=== PATIENT | male | born 1970 | race American Indian/Alaskan Native ===

== ENCOUNTER 2020-08-24 10:09 | Emergency (ER) | payer BC ==
[2020-08-24] MEDS ORDERED: ASPIRIN 325 MG TAB PO ONE (10:27)
--- NOTE | 2020-08-24 10:28 | Event Note ---
ED Screening Note Date of service: 08/24/20 Time: 10:27 ED Screening Note: Patient presents to the ER today with complaints of chest pain off and on for the past 3 to 4 months. Patient blood pressure noted to be elevated at triage. He admits to known history of hypertension but has been noncompliant with his medications. This initial assessment/diagnostic orders/clinical plan/treatment(s) is/are subject to change based on patients health status, clinical progression and re- assessment by fellow clinical providers in the ED. Further treatment and workup at subsequent clinical providers discretion. Patient/guardian urged not to elope from the ED as their condition may be serious if not clinically assessed and managed. Initial orders include: Chest pain orders
--- NOTE | 2020-08-24 10:51 | XRay Report ---
CHEST 2 VIEWS INDICATION / CLINICAL INFORMATION: Chest Pain. COMPARISON: None available. FINDINGS: SUPPORT DEVICES: None. HEART / MEDIASTINUM: No significant abnormality. LUNGS / PLEURA: There is a small left pleural effusion with mild bibasilar atelectasis. The lungs are otherwise clear. No pneumothorax. ADDITIONAL FINDINGS: No significant additional findings. IMPRESSION: Small left pleural effusion with mild bibasilar atelectasis. Signer Name: Saad Mcneill MD Signed: 08/24/2020 10:47 AM Workstation Name: [id number]
[2020-08-24 11:10] LABS: Basophils % (Auto) 0.4 % (0.0-1.8); Eosinophils # (Auto) 0.1 K/mm3 (0.0-0.4); Eosinophils % (Auto) 0.8 % (0.0-4.3); Hemoglobin 15.5 gm/dl (11.8-15.2); Lymphocytes # (Auto) 1.7 K/mm3 (1.2-5.4); Mean Corpuscular HGB Conc 33 % (32-34); Mean Corpuscular Volume 78 fl (84-94); Monocytes # (Auto) 0.4 K/mm3 (0.0-0.8); Monocytes % (Auto) 3.5 % (0.0-7.3); Platelet Count 265 K/mm3 (140-440); Red Blood Count 6.04 M/mm3 (3.65-5.03); Red Cell Distribution Width 16.7 % (13.2-15.2)
[2020-08-24 11:19] LABS: INR 1.08 (0.87-1.13)
[2020-08-24 11:20] LABS: Partial Thromboplastin Time 25.2 Sec. (24.2-36.6)
--- NOTE | 2020-08-24 13:32 | Emergency Department Report ---
ED Chest Pain HPI - General Chief Complaint: Chest Pain Stated Complaint: CHEST PAINS PUI?: No Time Seen by Provider: 08/24/20 13:16 Source: patient Mode of arrival: Ambulatory Limitations: No Limitations - History of Present Illness Initial Comments: CC: heart racing, shortness of breath, food getting stuck HPI: This a 49 yo male with hx of HTN who presents with intermittent chest discomfort for 3-4 months. He feels that the discomfort is associated with food. Worse with laying flat. Worse at night. Mr. Freeman has also noticed shortness of breath when laying flat. Heart starts to race when sits up. He had persistent chest discomfort after eating last night. Resolved this morning. No leg swelling. No shortness of breath with exertion. MD Complaint: chest pain -: Gradual, month(s) (3-4 months) Onset: during rest, after eating Pain Location: epigastric Severity: mild Quality: other (feels like food getting stuck) Consistency: intermittent, now resolved Improves With: other (sitting up) Worsens With: eating, other (laying flat) re: dyspnea Treatments Prior to Arrival: none - Related Data Previous Rx's Medication Instructions Recorded Last Taken Type Omeprazole 40 mg PO DAILY #30 capsule. 08/24/20 Unknown Rx Valsartan 80 mg PO DAILY #90 tablet 08/24/20 Unknown Rx amLODIPine 5 mg PO DAILY #90 tab 08/24/20 Unknown Rx Allergies Allergy/AdvReac Type Severity Reaction Status Date / Time No Known Allergies Allergy Unverified 08/24/20 10:19 Heart Score - HEART Score History: Slightly suspicious EKG: Non-specific Age: 45-65 Risk factors: 1-2 risk factors Troponin: < normal limit HEART Score: 3 - EKG Read Time Time EKG Completed: 10:23 EKG Read Time: 10:28 ED Review of Systems ROS: Stated complaint: CHEST PAINS Other details as noted in HPI Comment: All other systems reviewed and negative Constitutional: denies: fever, malaise Respiratory: shortness of breath. denies: cough Cardiovascular: chest pain, palpitations Gastrointestinal: denies: abdominal pain, nausea, vomiting Neurological: denies: headache, weakness ED Past Medical Hx - Past Medical History Previous Medical History?: Yes Hx Hypertension: Yes Additional medical history: anemia - Surgical History Past Surgical History?: No - Medications Home Medications: Home Medications Medication Instructions Recorded Confirmed Last Taken Type Omeprazole 40 mg PO DAILY #30 capsule. 08/24/20 Unknown Rx Valsartan 80 mg PO DAILY #90 tablet 08/24/20 Unknown Rx amLODIPine 5 mg PO DAILY #90 tab 08/24/20 Unknown Rx ED Physical Exam - General Limitations: No Limitations General appearance: alert, in no apparent distress - Head Head exam: Present: atraumatic, normocephalic - Eye Eye exam: Present: normal appearance - ENT ENT exam: Present: mucous membranes moist - Neck Neck exam: Present: normal inspection, full ROM - Respiratory Respiratory exam: Present: normal lung sounds bilaterally. Absent: respiratory distress, wheezes, rales, rhonchi - Cardiovascular Cardiovascular Exam: Present: regular rate, normal rhythm, normal heart sounds. Absent: systolic murmur, diastolic murmur, rubs, gallop - GI/Abdominal GI/Abdominal exam: Present: soft, normal bowel sounds. Absent: distended, tenderness, guarding, rebound - Rectal Rectal exam: Present: deferred - Extremities Exam Extremities exam: Present: normal inspection - Neurological Exam Neurological exam: Present: alert, oriented X3 - Psychiatric Psychiatric exam: Present: normal affect, normal mood - Skin Skin exam: Present: warm, dry, intact, normal color. Absent: rash ED Course Vital Signs 08/24/20 10:20 Temperature 98.1 F Pulse Rate 103 H Respiratory 20 Rate Blood Pressure 187/150 O2 Sat by Pulse 98 Oximetry ED Medical Decision Making - Lab Data Result diagrams: 08/24/20 10:52 08/24/20 10:52 - Radiology Data Radiology results: report reviewed Patient Name: MARCY FREEMAN Gender: Male Date of : 1970 Referring Provider: ISABELLE BLAKELY Organization: [facility] Accession Number: [id number] Requested Date: August 24, 2020 10:27 Report Status: Final Requested Procedure: 1 Procedure Description: XR chest routine 2V Modality: XR Findings Reporting MD: Saad Mcneill Dictation Time: August 24, 2020 09:47 Muck Hauler: Not available Occupational Health Physician Date: CHEST 2 VIEWS INDICATION / CLINICAL INFORMATION: Chest Pain. COMPARISON: None available. FINDINGS: SUPPORT DEVICES: None. HEART / MEDIASTINUM: No significant abnormality. LUNGS / PLEURA: There is a small left pleural effusion with mild bibasilar atelectasis. The lungs are otherwise clear. No pneumothorax. ADDITIONAL FINDINGS: No significant additional findings. IMPRESSION: Small left pleural effusion with mild bibasilar atelectasis. - Medical Decision Making 1. GERD: omeprazole for 30 days 2. PND, dyspnea with small pleural effusion suspect heart failure, upon my personal review of CXR patient has significant cardiomegaly, patient understands need to see physician for ultimate treatment and diagnosis. Referral request faxed to [facility] for cardiology follow up. 3. Hypertensive Urgency due to noncompliance. Rx: valsartan, amlodipine 90 day prescription Given referral to PCP 4. Chronic kidney disease likely due to untreated hypertension. Patient referred to outpatient medicine physician. Critical care attestation.: If time is entered above; I have spent that time in minutes in the direct care of this critically ill patient, excluding procedure time. ED Disposition Clinical Impression: GERD (gastroesophageal reflux disease), Hypertensive urgency, Pleural effusion, Chronic kidney disease Disposition: TO HOME OR SELFCARE Is pt being admited?: No Does the pt Need Aspirin: No Condition: Stable Instructions: Chronic Kidney Disease, Adult, [id number], Gastroesophageal Reflux Disease, Adult, Uthv-id-Lycm Prescriptions: amLODIPine 5 mg PO DAILY #90 tab Omeprazole 40 mg PO DAILY #30 capsule.dr Salomonrtan 80 mg PO DAILY #90 tablet Referrals: ROBB ESPINAL MD [Staff Physician] - 3-5 Days MARSHA CURTIS MD [Staff Physician] - 3-5 Days
[2020-08-24 13:59] LABS: Albumin 3.9 g/dL (3.9-5); Calcium 9.5 mg/dL (8.4-10.2)
[2020-08-24 14:37] VITALS: BP 171/114
--- NOTE | 2020-08-28 17:30 | Electrocardiograph Report ---
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
== END 2020-08-24 14:39 | disposition home or self-care (01) ==
LOC: ED 10:09
DX: I12.9 Hypertensive chronic kidney disease with stage 1 through stage 4 chronic kidney disease, or unspecified chronic kidney disease (principal); N18.9 Chronic kidney disease, unspecified; K21.9 Gastro-esophageal reflux disease without esophagitis; J90 Pleural effusion, not elsewhere classified; I16.0 Hypertensive urgency; Z79.899 Other long term (current) drug therapy
CPT/HCPCS: 36415; 71046; 80053; 83690; 84484; 85025; 85610; 85730; 93005

== ENCOUNTER 2021-10-16 13:37 | Emergency (ER) | payer BC ==
--- NOTE | 2021-10-16 15:33 | XRay Report ---
ABDOMEN 2 VIEW INDICATION / CLINICAL INFORMATION: consitpation. COMPARISON: None available. FINDINGS: TUBES / LINES: None. BOWEL GAS PATTERN: No significant abnormality. FREE AIR / EXTRALUMINAL GAS: None seen. ADDITIONAL FINDINGS: No significant additional findings. IMPRESSION: 1. No acute findings. Signer Name: Rudolph Willard MD Signed: 10/16/2021 3:29 PM Workstation Name: [id number]
[2021-10-16 16:03] LABS: Albumin 4.6 g/dL (3.9-5); Calcium 10.1 mg/dL (8.4-10.2)
[2021-10-16 16:12] LABS: Basophils # (Auto) 0.1 K/mm3 (0.0-0.1); Basophils % (Auto) 1.6 % (0.0-1.8); Eosinophils # (Auto) 0.1 K/mm3 (0.0-0.4); Eosinophils % (Auto) 1.1 % (0.0-4.3); Hematocrit 46.6 % (35.5-45.6); Hemoglobin 15.2 gm/dl (11.8-15.2); Lymphocytes # (Auto) 1.4 K/mm3 (1.2-5.4); Lymphocytes % (Auto) 17.2 % (13.4-35.0); Mean Corpuscular HGB Conc 33 % (32-34); Mean Corpuscular Volume 75 fl (84-94); Mean Platelet Volume 7.3 fl (6-12); Monocytes # (Auto) 0.4 K/mm3 (0.0-0.8); Monocytes % (Auto) 5.3 % (0.0-7.3); Platelet Count 263 K/mm3 (140-440); Red Blood Count 6.19 M/mm3 (3.65-5.03); Red Cell Distribution Width 17.4 % (13.2-15.2)
[2021-10-16] MEDS ORDERED: KETOROLAC 30 MG/1 ML INJ IV ONE (20:59)
[2021-10-16] MEDS ORDERED: ONDANSETRON 4 MG/2 ML INJ IV ONE (20:59)
[2021-10-16] MEDS ORDERED: SODIUM CHLORIDE 0.9% 1000 ML 1,000 ML IV ONE (20:59)
--- NOTE | 2021-10-16 21:48 | Emergency Department Report ---
ED Abdominal Pain HPI - General Chief Complaint: Abdominal Pain Stated Complaint: ABD/BACK PAIN Time Seen by Provider: 10/16/21 20:57 Source: patient Mode of arrival: Ambulatory Limitations: No Limitations - History of Present Illness Initial Comments: Is a 50-year-old male who presents for epigastric pain radiating to right flank x1 week. Patient states nausea no vomiting. No fever chills symptoms rated at 7/10. Exacerbated by movement. Patient denies dysuria however does endorse frequency and urgency there is no hematuria. Has history of hypertension and GERD. Symptoms are relieved by nothing. Symptoms have persisted for the past 2 weeks. MD Complaint: abdominal pain, flank pain Severity scale (0 -10): 3 - Related Data Previous Rx's Medication Instructions Recorded Last Taken Type Omeprazole 40 mg PO DAILY #30 capsule. 08/24/20 Unknown Rx Valsartan 80 mg PO DAILY #90 tablet 08/24/20 Unknown Rx amLODIPine 5 mg PO DAILY #90 tab 08/24/20 Unknown Rx polyethylene glycoL 3350 [Miralax 17 gm PO BID PRN #14 packet 10/16/21 Unknown Rx 3350] Allergies Allergy/AdvReac Type Severity Reaction Status Date / Time No Known Allergies Allergy Unverified 08/24/20 10:19 ED Review of Systems ROS: Stated complaint: ABD/BACK PAIN Other details as noted in HPI Constitutional: denies: chills, fever Eyes: denies: eye pain, eye discharge, vision change ENT: denies: ear pain, throat pain Respiratory: denies: cough, shortness of breath, wheezing Cardiovascular: denies: chest pain, palpitations Endocrine: no symptoms reported Gastrointestinal: abdominal pain, nausea. denies: vomiting, diarrhea, constipation, melena Genitourinary: denies: urgency, dysuria, frequency, hematuria, discharge Musculoskeletal: back pain Skin: denies: rash, lesions Neurological: denies: headache, weakness, paresthesias, vertigo Psychiatric: denies: anxiety, depression Hematological/Lymphatic: denies: easy bleeding, easy bruising ED Past Medical Hx - Past Medical History Previous Medical History?: Yes Hx Hypertension: Yes Hx GERD: Yes Additional medical history: anemia - Surgical History Past Surgical History?: No - Social History Smoking Status: Unknown if ever smoked - Medications Home Medications: Home Medications Medication Instructions Recorded Confirmed Last Taken Type Omeprazole 40 mg PO DAILY #30 capsule. 08/24/20 Unknown Rx Valsartan 80 mg PO DAILY #90 tablet 08/24/20 Unknown Rx amLODIPine 5 mg PO DAILY #90 tab 08/24/20 Unknown Rx polyethylene glycoL 3350 [Miralax 17 gm PO BID PRN #14 packet 10/16/21 Unknown Rx 3350] ED Physical Exam - General Limitations: No Limitations General appearance: alert, in no apparent distress - Head Head exam: Present: normocephalic, normal inspection - Eye Eye exam: Present: EOMI Pupils: Present: normal accommodation - ENT ENT exam: Present: mucous membranes moist - Neck Neck exam: Present: normal inspection, full ROM. Absent: tenderness, lymphadenopathy - Respiratory Respiratory exam: Present: normal lung sounds bilaterally. Absent: respiratory distress, wheezes, stridor, chest wall tenderness - Cardiovascular Cardiovascular Exam: Present: regular rate, normal rhythm, normal heart sounds. Absent: systolic murmur, diastolic murmur, rubs, gallop - GI/Abdominal GI/Abdominal exam: Present: soft, tenderness, normal bowel sounds. Absent: distended, guarding (Epigastric), rebound, rigid, bruit, hernia - Rectal Rectal exam: Present: deferred - Extremities Exam Extremities exam: Present: normal inspection, full ROM, normal capillary refill. Absent: pedal edema - Back Exam Back exam: Present: normal inspection, full ROM, CVA tenderness (R). Absent: CVA tenderness (L) - Neurological Exam Neurological exam: Present: alert, oriented X3, CN II-XII intact - Psychiatric Psychiatric exam: Present: normal affect, normal mood - Skin Skin exam: Present: warm, dry, intact, normal color. Absent: rash ED Course Vital Signs 10/16/21 10/16/21 14:47 21:42 Pulse Rate 99 H Respiratory 18 16 Rate Blood Pressure 153/114 [Left] O2 Sat by Pulse 99 Oximetry ED Medical Decision Making - Lab Data Result diagrams: 10/16/21 15:26 10/16/21 15:26 Labs 10/16/21 10/16/21 15:26 15:26 WBC 8.2 RBC 6.19 H Hgb 15.2 Hct 46.6 H MCV 75 L MCH 25 L MCHC 33 RDW 17.4 H Plt Count 263 Lymph % (Auto) 17.2 Kings % (Auto) 5.3 Eos % (Auto) 1.1 Baso % (Auto) 1.6 Lymph # (Auto) 1.4 Kings # (Auto) 0.4 Eos # (Auto) 0.1 Baso # (Auto) 0.1 Seg Neutrophils % 74.8 H Seg Neutrophils # 6.1 Sodium 141 Potassium 3.9 Chloride 103.7 Carbon Dioxide 24 Anion Gap 17 BUN 21 H Creatinine 1.6 H Estimated GFR 55 BUN/Creatinine Ratio 13 Glucose 97 Calcium 10.1 Total Bilirubin 0.90 AST 20 ALT 18 Alkaline Phosphatase 74 Total Protein 7.7 Albumin 4.6 Albumin/Globulin Ratio 1.5 Labs 10/16/21 10/16/21 15:26 15:26 WBC 8.2 RBC 6.19 H Hgb 15.2 Hct 46.6 H MCV 75 L MCH 25 L MCHC 33 RDW 17.4 H Plt Count 263 Lymph % (Auto) 17.2 Kings % (Auto) 5.3 Eos % (Auto) 1.1 Baso % (Auto) 1.6 Lymph # (Auto) 1.4 Kings # (Auto) 0.4 Eos # (Auto) 0.1 Baso # (Auto) 0.1 Seg Neutrophils % 74.8 H Seg Neutrophils # 6.1 Sodium 141 Potassium 3.9 Chloride 103.7 Carbon Dioxide 24 Anion Gap 17 BUN 21 H Creatinine 1.6 H Estimated GFR 55 BUN/Creatinine Ratio 13 Glucose 97 Calcium 10.1 Total Bilirubin 0.90 AST 20 ALT 18 Alkaline Phosphatase 74 Total Protein 7.7 Albumin 4.6 Albumin/Globulin Ratio 1.5 - Radiology Data Radiology results: report reviewed, image reviewed CT ABDOMEN AND PELVIS WITHOUT CONTRAST INDICATION / CLINICAL INFORMATION: Flank pain, possible renal stone(s). TECHNIQUE: Axial CT images were obtained through the abdomen and pelvis without IV contrast. All CT scans at this location are performed using CT dose reduction for ALARA by means of automated exposure control. COMPARISON: None available. FINDINGS: LOWER CHEST: No significant abnormality. LIVER: No significant abnormality. GALLBLADDER: No significant abnormality. BILE DUCTS: No significant abnormality. PANCREAS: No significant abnormality. SPLEEN: No significant abnormality. ADRENALS: No significant abnormality. RIGHT KIDNEY/URETER: No significant abnormality. LEFT KIDNEY/URETER: A probable lower pole left renal cyst measures up to 6.8 cm without suspicious features by noncontrast imaging. No other significant abnormality. STOMACH/SMALL BOWEL: No significant abnormality. COLON: No significant abnormality. APPENDIX: No significant abnormality. PERITONEUM: No free fluid. No free air. No fluid collection. LYMPH NODES: No significant adenopathy. VASCULATURE: No significant abnormality. URINARY BLADDER: No significant abnormality. REPRODUCTIVE ORGANS: The prostate gland is mildly enlarged. No other signif icant abnormality. ADDITIONAL FINDINGS: None. BONES: Mild degenerative changes are seen along the SI joints. No other significant abnormality. IMPRESSION: 1. No renal/ureteral stones or other acute findings to spine the patient's flank pain. 2. Additional findings as above. Signer Name: Saad Mcneill MD Signed: 10/16/2021 10:19 PM Workstation Name: [id number] Transcribed By: [place] Dictated By: Saad Mcneill MD Electronically Authenticated By: Saad Mcneill MD Signed Date/Time: 10/16/212218 DD/ 15 TD/TT: ABDOMEN 2 VIEW INDICATION / CLINICAL INFORMATION: consitpation. COMPARISON: None available. FINDINGS: TUBES / LINES: None. BOWEL GAS PATTERN: No significant abnormality. FREE AIR / EXTRALUMINAL GAS: None seen. ADDITIONAL FINDINGS: No significant additional findings. IMPRESSION: 1. No acute findings. Signer Name: Rudolph Willard MD Signed: 10/16/2021 3:29 PM Workstation Name: [id number] Transcribed By: TL Dictated By: Rudolph Willard MD Electronically Authenticated By: Rudolph Willard MD Signed Date/Time: 10/16/211528 DD/ 151 TD/TT: - Medical Decision Making CT scan left renal pole cyst 6.8 cm no other abnormal findings, KUB normal gas pattern, labs noted as above. Patient advised symptoms improved medications given in ED plan DC to home with prescriptions. Follow-up with primary care doctor in 2 to 3 days. Return to emergency department should symptoms symptoms worsen. Patient verbalized agreement understanding with discharge plan patient DC'd home in stable condition at this time., Critical care attestation.: If time is entered above; I have spent that time in minutes in the direct care of this critically ill patient, excluding procedure time. ED Disposition Clinical Impression: Abdominal pain Qualifiers: Abdominal location: right upper quadrant Qualified Code(s): R10.11 - Right upper quadrant pain Disposition: HOME / SELF CARE / HOMELESS Is pt being admited?: No Does the pt Need Aspirin: No Condition: Stable Instructions: Abdominal Pain, Adult, [id number] Additional Instructions: Take medications as prescribed. Follow-up with your doctor in 2 to 3 days. Return to emergency department should symptoms worsen. Prescriptions: polyethylene glycoL 3350 [Miralax 3350] 17 gm PO BID PRN #14 packet PRN Reason: Constipation Referrals: OSMANI HERNANDEZ MD [Staff Physician] - 3-5 Days Forms: Work/School Release Form(ED) Time of Disposition: 23:30
--- NOTE | 2021-10-16 22:24 | Cat Scan Report ---
CT ABDOMEN AND PELVIS WITHOUT CONTRAST INDICATION / CLINICAL INFORMATION: Flank pain, possible renal stone(s). TECHNIQUE: Axial CT images were obtained through the abdomen and pelvis without IV contrast. All CT scans at [facility] location are performed using CT dose reduction for ALARA by means of automated exposure control. COMPARISON: None available. FINDINGS: LOWER CHEST: No significant abnormality. LIVER: No significant abnormality. GALLBLADDER: No significant abnormality. BILE DUCTS: No significant abnormality. PANCREAS: No significant abnormality. SPLEEN: No significant abnormality. ADRENALS: No significant abnormality. RIGHT KIDNEY/URETER: No significant abnormality. LEFT KIDNEY/URETER: A probable lower pole left renal cyst measures up to 6.8 cm without suspicious fe atures by noncontrast imaging. No other significant abnormality. STOMACH/SMALL BOWEL: No significant abnormality. COLON: No significant abnormality. APPENDIX: No significant abnormality. PERITONEUM: No free fluid. No free air. No fluid collection. LYMPH NODES: No significant adenopathy. VASCULATURE: No significant abnormality. URINARY BLADDER: No significant abnormality. REPRODUCTIVE ORGANS: The prostate gland is mildly enlarged. No other significant abnormality. ADDITIONAL FINDINGS: None. BONES: Mild degenerative changes are seen along the SI joints. No other significant abnormality. IMPRESSION: 1. No renal/ureteral stones or other acute findings to spine the patient's flank pain. 2. Additional findings as above. Signer Name: Saad Mcneill MD Signed: 10/16/2021 10:19 PM Workstation Name: [id number]
[2021-10-16 22:59] LABS: Hyaline Casts,Urine 1 /LPF; Mucus,Urine FEW /HPF; RBC,Urine < 1.0 /HPF (0.0-6.0)
[2021-10-16 23:00] LABS: Bilirubin,Urine Negative (Negative); Color,Urine Yellow (Yellow)
[2021-10-16 23:01] LABS: Blood,Urine Trace (Negative); Protein,Urine >2000 mg dL mg/dL (Negative)
[2021-10-17 01:18] VITALS: BP 140/88
== END 2021-10-17 01:18 | disposition home or self-care (01) ==
LOC: ED 13:37
DX: R10.13 Epigastric pain (principal); R10.11 Right upper quadrant pain; I10 Essential (primary) hypertension; K21.9 Gastro-esophageal reflux disease without esophagitis; D64.9 Anemia, unspecified
CPT/HCPCS: 36415; 74018; 74176; 80053; 81001; 85025; 96361; 96374; 96375; 99284; J1885; J2405; J7030